=== PATIENT | female | born 1955 | race Caucasian/White ===

== ENCOUNTER → 2016-08-14 | Outpatient (CLI) | payer OTHER ==
--- NOTE | 2016-08-15 08:54 | MRI ---
EXAM DESCRIPTION: Lumbar Spine w/o Contrast CLINICAL HISTORY: 60 years, Female, M54.5 low back pain COMPARISON: None. FINDINGS: Sagittal and axial sequences. Bone marrow signal is somewhat heterogeneous but not worrisome. Conus terminates at L1. Multiple benign-appearing subcentimeter renal cysts, more on the left. L1-2, L2-3 and L3-4 within normal limits. Minimal narrowing and bulging disc L4-5. Mild facet degenerative change. No significant stenosis. At L5-S1, mild narrowing and bulging disc slightly asymmetric to the left. Mild facet degenerative change. No significant stenosis IMPRESSION: Mild degenerative disc changes lower two lumbar interspaces without significant stenosis visualized. Upper lumbar interspaces unremarkable. Incidental note of numerous bilateral renal cysts, more on the left Electronically signed by: Navdeep Hermosillo MD 08/15/2016 8:53 AM CDT
== END | disposition home or self-care (01) ==
LOC: MRI 07:47
PROVIDERS: ATTEND Nurse Practitioner Family
DX: M54.5 Low back pain (principal)

== ENCOUNTER → 2016-10-17 | Outpatient (CLI) | payer OTHER | LOC: GMAJ 13:16 | PROVIDERS: ATTEND Family Medicine | DX: R53.1 Weakness (principal); F32.0 Major depressive disorder, single episode, mild ==

== ENCOUNTER → 2016-10-22 | Outpatient (CLI) | payer OTHER ==
--- NOTE | 2016-10-23 13:18 | MAM ---
EXAM DESCRIPTION: 3D Screening BILATERAL CLINICAL HISTORY: 60 yearsFemaleSCREENING . No complaints. Maternal grandmother with breast cancer. Postmenopausal. Currently using HRT. Previous bilateral cyst aspiration. COMPARISON: None. No prior reports available. TECHNIQUE: Bilateral CC and MLO projection full-field images, 3-D tomosynthesis digital mammographic technique. Also bilateral synthesized CC/ MLO full-field images. CAD not utilized. FINDINGS: The breast parenchymal density pattern is: Heterogeneously dense breast tissue, which may obscure small masses. No skin thickening or nipple retraction bilateral scattered solitary microcalcifications. Focal asymmetry vs. Ill-defined mass density, approximately 1.5 cm in diameter abutting the right pectoral muscle in the posterior third of the breast seen only on the MLO images. 13 cm from the nipple and 6 Centimeters from the skin surface . Small solitary microcalcification. Appears to be medial on the coronal images. Approximately 200 clock position. Possibly an inflamed lymph node. No focal, stellate mass or density, , and no suspicious microcalcifications bilaterally. No focal asymmetry in the left breast. IMPRESSION: BI-RADS CATEGORY: 0 - INCOMPLETE- Need additional imaging evaluation. FOLLOW-UP: Recall for additional imaging: Right breast exaggerated CC view. Right breast digital full field lateral medial 3-D tomosynthesis image. Followed by targeted right breast ultrasound. Written communication explaining the results and follow-up will be mailed to the patient and referring care provider. Electronically signed by: Darrin Terry MD 10/23/2016 1:16 PM CDT Workstation: [id number]
== END ==
LOC: MAMMO 10:35
PROVIDERS: ATTEND Family Medicine
DX: Z12.31 Encounter for screening mammogram for malignant neoplasm of breast (principal)

== ENCOUNTER → 2016-11-19 | Outpatient (CLI) | payer OTHER ==
--- NOTE | 2016-11-19 13:16 | MAM ---
EXAM DESCRIPTION: 3D Diagnostic, Right CLINICAL HISTORY: 61 yearsFemaleABNORMAL MAMMO. No history of trauma to the right breast axilla or right posterior superior breast at the chest wall. COMPARISON: 3-D tomosynthesis screening bilateral study 10/22/2016. Targeted right breast ultrasound on this visit. TECHNIQUE: Digital 3-D tomosynthesis LM and CC and exaggerated CC projections. FINDINGS: The focal asymmetry seen on the prior screening study on the MLO projections abutting the pectoral muscle is not seen on the exaggerated craniocaudal or lateral medial projections of the right breast. ULTRASOUND: Scanning of the posterior third of the right breast abutting the chest wall. Fibrofatty and fibroglandular tissues are seen in a heterogeneous pattern. Multiple cysts, less than 1 cm in diameter, are scattered through the fibroglandular tissues. Hypoechoic mass with well-defined dang measuring 5.0 x 4.5 mm with well-defined borders. Parallel orientation and mixed posterior features. No definite calcifications and not vascular. Could be complicated cyst or fibroadenoma. No other discrete solid mass or calcification. No parenchymal edema. IMPRESSION: BI-RADS CATEGORY: 2 - BENIGN FINDINGS. FOLLOW UP: Return to routine digital bilateral screening, one year interval from November 2016. The results and follow-up were discussed in person with the patient. Communication explaining the results and followup will be mailed to the patient and referring care provider. According to the [employer], yearly mammograms are recommended starting at age 40 and continuing as long as a woman is in good health. Any breast change noted on a breast self-exam should be reported promptly to the patient's healthcare provider. Breast MRI is recommended for women with an approximately 20-25% or greater lifetime risk of breast cancer, including women with a strong family history of breast or ovarian cancer and women who have been treated for Hodgkin's disease. A negative mammographic report should not delay tissue diagnosis in patients with significant clinical history or physical findings. Extremely dense breast tissue limits the sensitivity of digital mammography. Electronically signed by: Darrin Terry MD 11/19/2016 1:15 PM CDT Workstation: [id number]
--- NOTE | 2016-11-19 13:16 | US ---
EXAM DESCRIPTION: Breast, right CLINICAL HISTORY: 61 yearsFemaleABNORMAL MAMMO COMPARISON: Digital 3-D breast tomosynthesis right on this visit and bilateral 3-D breast tomosynthesis screening study 10/23/2016. TECHNIQUE: Transcutaneous scanning of the posterior third of the right breast utilizing two-dimensional and Doppler modes. Scanning performed by the registered nurse cardiac telemetry and Dr. Terry. FINDINGS: Scanning of the posterior third of the right breast abutting the chest wall. Fibrofatty and fibroglandular tissues are seen in a heterogeneous pattern. Multiple cysts, less than 1 cm in diameter, are scattered through the fibroglandular tissues. Hypoechoic mass with well-defined dang measuring 5.0 x 4.5 mm with well-defined borders. Parallel orientation and mixed posterior features. No definite calcifications and not vascular. Could be complicated cyst or fibroadenoma. No other discrete solid mass or calcification. No parenchymal edema. IMPRESSION: BI-RADS CATEGORY: 2 - BENIGN FINDINGS. FOLLOW UP: Return to routine digital bilateral mammographic screening, one year interval from November 2016. Written communication explaining the findings and follow-up, will be mailed to the patient and referring health care provider. The findings and the follow-up plan were reviewed in person with the patient after the examination. Electronically signed by: Darrin Terry MD 11/19/2016 1:15 PM CDT Workstation: [id number]
== END | disposition home or self-care (01) ==
LOC: MAMMO 11:11
PROVIDERS: ATTEND Family Medicine
DX: R92.8 Other abnormal and inconclusive findings on diagnostic imaging of breast (principal)
CPT/HCPCS: 76641; G0279

== ENCOUNTER 2020-05-27 10:09 | Emergency (ER) | payer MEDICARE, OTHER ==
--- NOTE | 2020-05-27 10:19 | ED.PDOC ---
History of Present Illness - General Stated Complaint: Abdominal pain, nausea vomiting and diarrhea Time Seen by Provider: 05/27/20 10:18 - History of Present Illness Initial Comments: Awakens 7 AM today with severe pain in the right lower quadrant which radiates through to the back and down to the right thigh. Patient complains of nausea with vomiting twice. She also complains of diarrhea 3 times which is nonbloody. Patient denies fever but complains of chills. Patient is status post hysterectomy but denies other abdominal surgeries. She thinks she still has her appendix. Timing/Duration: 4-6 hours Severity: severe Improving Factors: rest Worsening Factors: movement Associated Symptoms: denies symptoms Allergies/Adverse Reactions: Allergies NO KNOWN ALLERGY Allergy (Verified 05/27/20 10:32) Home Medications: Ambulatory Orders Tamsulosin [Flomax] 0.4 mg PO DAILY 10 Days #10 cap 05/27/20 Review of Systems - Review of Systems Constitutional: States: chills EENTM: States: no symptoms reported Cardiology: States: no symptoms reported Gastrointestinal/Abdominal: States: see HPI Genitourinary: States: no symptoms reported Musculoskeletal: States: no symptoms reported Skin: States: no symptoms reported Neurological: States: no symptoms reported Endocrine: States: no symptoms reported Hematologic/Lymphatic: States: no symptoms reported Family Medical History - Family History Mother Family History: Unknown Living Status: Unknown Physical Exam - Physical Exam General Appearance: Alert, Obvious distress - In severe discomfort Eye Exam: bilateral normal Ears, Nose, Throat: hearing grossly normal, normal ENT inspection Neck: non-tender, full range of motion Respiratory: chest non-tender, normal breath sounds Cardiovascular/Chest: regular rate, rhythm Gastrointestinal/Abdominal: normal bowel sounds, soft, tenderness - Very tender right lower quadrant with mild rebound Back Exam: normal inspection, no CVA tenderness Extremity: no pedal edema, no calf tenderness Neurologic: pulp drier firer II-XII nml as tested, no motor/sensory deficits, normal mood/affect, oriented x 3 Skin Exam: normal color Lymphatic: no adenopathy Progress - Progress Progress: 05/27/20 10:29 IV normal saline 500 mL infusion. Morphine 4 mg and Zofran 4 mg IV. 05/27/20 11:59 Later morphine 4 mg given. Comfortable patient more comfortable at this time. Ketorolac 15 mg IV ordered. All diagnostic findings and treatment plan explained to patient and her . 05/27/20 12:41 The pain has now fully subsided. Patient appears comfortable. All diagnostic findings and treatment plan were explained. Patient does not want narcotic prescription. Medical decision makin-year-old female presenting with acute pain in the right lower quadrant with radiation to the back and down the thigh. Patient's initial presentation was suggestive of appendicitis as there was right lower quadrant tenderness. The CT scan of the abdomen did not show acute appendicitis and did show an obstructing 2 mm stone at the right UVJ. Patient is symptomatically improved and appears to be suitable for outpatient treatment. - Results/Orders Results/Orders: EXAM: CT Abdomen and Pelvis With Intravenous Contrast CLINICAL HISTORY: Right lower quadrant pain, rule out appendicitis TECHNIQUE: Axial computed tomography images of the abdomen and pelvis with intravenous contrast. Sagittal and coronal reformatted images were created and reviewed. This CT exam was performed using one or more of the following dose reduction techniques: automated exposure control, adjustment of the mA and/or kV according to patient size, and/or use of iterative reconstruction technique. COMPARISON: No relevant prior studies available. FINDINGS: Limitations: None. Lung bases: No abnormality noted. Pleural space: No abnormality noted. Heart: No abnormality noted. Mediastinum: No abnormality noted. ABDOMEN: Liver: No abnormality noted. Gallbladder and bile ducts: No calcified stones or surrounding fluid. Pancreas: Homogeneous enhancement. No mass, inflammation or ductal dilation. Spleen: No abnormality noted. Adrenals: Visualized portions appear normal. Kidneys and ureters: There is mild right hydroureteronephrosis and mild to moderate diffuse right urinary tract inflammation. There is a 2 mm stone just above the right UVJ. Small bilateral renal cysts noted. The right kidney is ptotic. Stomach and bowel: There is moderate stool in the right colon. The intestinal loops are o therwise relatively normal caliber is not collapsed. Scattered colonic diverticula noted. PELVIS: Appendix: No findings to suggest acute appendicitis. Bladder: No filling defects to suggest mass or large stone. No inflammation. Reproductive: Hysterectomy. ABDOMEN and PELVIS: Intraperitoneal space: No free air. No significant fluid collection. Bones/joints: No acute change noted. Soft tissues: No abnormality noted. Vasculature: No abdominal aortic aneurysm. Lymph nodes: No pathologically enlarged lymph nodes. IMPRESSION: 1. 2 mm stone just above the right UVJ with mild to moderate hydronephrosis and right urinary tract inflammation. 2. No CT evidence of acute appendicitis. Electronically signed by: Keri Barajas MD 05/27/2020 11:46 AM [employer] /27/20 10:25 URINALYSIS Stat 05/27/20 11:10 Hold Metformin x 48Hrs [id number] 05/27/20 11:58 Ketorolac Tromethamine Inj [Toradol Inj] 15 mg IV ONCE ONE Laboratory Results - last 24 hr 05/27/20 05/27/20 10:43 10:43 WBC 9.9 RBC 4.62 Hgb 13.8 Hct 39.8 MCV 86.2 MCH 29.8 MCHC 34.6 RDW 13.0 Plt Count 251 MPV 7.7 Absolute Neuts (auto) 7.40 H Absolute Lymphs (auto) 2.00 Absolute Monos (auto) 0.30 Absolute Eos (auto) 0.00 Absolute Basos (auto) 0.00 Neutrophils % 75.5 Lymphocytes % 20.8 Monocytes % 3.2 Eosinophils % 0.1 L Basophils % 0.4 Sodium 140 Potassium 3.7 Chloride 103 Carbon Dioxide 21 Anion Gap 19.7 H BUN 15 Creatinine 1.09 BUN/Creatinine Ratio 13.8 Random Glucose 170 H Serum Osmolality 284.2 Calcium 9.5 Total Bilirubin 0.7 AST 25 ALT 22 Alkaline Phosphatase 71 Serum Total Protein 7.4 Albumin 4.5 Globulin 2.9 Albumin/Globulin Ratio 1.6 Vital Signs - 24 hr 05/27/20 05/27/20 10:29 12:09 Temperature 96.9 F L Pulse Rate [ 85 74 Left Brachial] Respiratory 20 20 Rate Blood Pressure 204/89 170/88 [Left Arm] O2 Sat by Pulse 97 96 Oximetry 05/27/20 11:10 Hold Metformin x 48Hrs [id number] 05/27/20 12:21 URINE CULTURE W/COLONY COUNT Stat Laboratory Results - last 24 hr 05/27/20 05/27/20 05/27/20 10:43 10:43 12:21 WBC 9.9 RBC 4.62 Hgb 13.8 Hct 39.8 MCV 86.2 MCH 29.8 MCHC 34.6 RDW 13.0 Plt Count 251 MPV 7.7 Absolute Neuts (auto) 7.40 H Absolute Lymphs (auto) 2.00 Absolute Monos (auto) 0.30 Absolute Eos (auto) 0.00 Absolute Basos (auto) 0.00 Neutrophils % 75.5 Lymphocytes % 20.8 Monocytes % 3.2 Eosinophils % 0.1 L Basophils % 0.4 Sodium 140 Potassium 3.7 Chloride 103 Carbon Dioxide 21 Anion Gap 19.7 H BUN 15 Creatinine 1.09 BUN/Creatinine Ratio 13.8 Random Glucose 170 H Serum Osmolality 284.2 Calcium 9.5 Total Bilirubin 0.7 AST 25 ALT 22 Alkaline Phosphatase 71 Serum Total Protein 7.4 Albumin 4.5 Globulin 2.9 Albumin/Globulin Ratio 1.6 Urine Color Yellow Urine Appearance Clear Urine pH 7.5 Ur Specific [place] 1.015 Urine Protein Negative Urine Glucose (UA) 100 H Urine Ketones 15 H Urine Blood Trace-intact H Urine Nitrite Negative Urine Bilirubin Negative Urine Urobilinogen 0.2 Ur Leukocyte Esterase Negative Urine RBC 0-1 Urine WBC 0 Ur Epithelial Cells 0-1 Urine Bacteria 0 Departure - Departure Clinical Impression: Abdominal pain, Kidney stone on right side Disposition: Discharge to Home or Self Care Condition: Good Instructions: Kidney Stones (DC) Diet: resume usual diet - Drink lots of fluids to help facilitate passage of stone Referrals: Kristian Armas MD [Primary Care Provider] - 1-2 Weeks Prescriptions: Tamsulosin [Flomax] 0.4 mg PO DAILY 10 Days #10 cap Home Medications: Ambulatory Orders Tamsulosin [Flomax] 0.4 mg PO DAILY 10 Days #10 cap 05/27/20 Additional Instructions: Take 2 or 3 [id number] ibuprofen tablets with food 4 times a day as needed for pain. If you develop fever, worsening pain in your flank, or vomiting then return to the emergency department. Contact your doctor to arrange for referral to a urologist. If your pain remains completely subsided you do not need to take the medicine prescribed to help pass the stone.
[2020-05-27] MEDS ORDERED: SODIUM CHLORIDE 0.9% 500ML 500 ML IVS ONE (10:25)
[2020-05-27] MEDS ORDERED: ONDANSETRON INJ 4 MG/2 ML VIAL IV ONE (10:25)
[2020-05-27] MEDS ORDERED: MORPHINE SULFATE INJ 10 MG/ML VIAL IV ONE ×2 (10:26→10:53)
[2020-05-27 10:32] VITALS: TEMP 96.9
--- NOTE | 2020-05-27 11:47 | CT ---
EXAM: CT Abdomen and Pelvis With Intravenous Contrast CLINICAL HISTORY: Right lower quadrant pain, rule out appendicitis TECHNIQUE: Axial computed tomography images of the abdomen and pelvis with intravenous contrast. Sagittal and coronal reformatted images were created and reviewed. This CT exam was performed using one or more of the following dose reduction techniques: automated exposure control, adjustment of the mA and/or kV according to patient size, and/or use of iterative reconstruction technique. COMPARISON: No relevant prior studies available. FINDINGS: Limitations: None. Lung bases: No abnormality noted. Pleural space: No abnormality noted. Heart: No abnormality noted. Mediastinum: No abnormality noted. ABDOMEN: Liver: No abnormality noted. Gallbladder and bile ducts: No calcified stones or surrounding fluid. Pancreas: Homogeneous enhancement. No mass, inflammation or ductal dilation. Spleen: No abnormality noted. Adrenals: Visualized portions appear normal. Kidneys and ureters: There is mild right hydroureteronephrosis and mild to moderate diffuse right urinary tract inflammation. There is a 2 mm stone just above the right UVJ. Small bilateral renal cysts noted. The right kidney is ptotic. Stomach and bowel: There is moderate stool in the right colon. The intestinal loops are otherwise relatively normal caliber is not collapsed. Scattered colonic diverticula noted. PELVIS: Appendix: No findings to suggest acute appendicitis. Bladder: No filling defects to suggest mass or large stone. No inflammation. Reproductive: Hysterectomy. ABDOMEN and PELVIS: Intraperitoneal space: No free air. No significant fluid collection. Bones/joints: No acute change noted. Soft tissues: No abnormality noted. Vasculature: No abdominal aortic aneurysm. Lymph nodes: No pathologically enlarged lymph nodes. IMPRESSION: 1. 2 mm stone just above the right UVJ with mild to moderate hydronephrosis and right urinary tract inflammation. 2. No CT evidence of acute appendicitis. Electronically signed by: Keri Barajas MD 05/27/2020 11:46 AM [employer] MATE
[2020-05-27] MEDS ORDERED: KETOROLAC TROMETHAMINE INJ 30 MG/ML VIAL IV ONE (11:58)
[2020-05-27 12:15] VITALS: O2SAT 96
[2020-05-27 13:11] VITALS: BP 145/68
== END 2020-05-27 13:11 | disposition home or self-care (01) ==
LOC: ER 10:09
DX: N13.2 Hydronephrosis with renal and ureteral calculous obstruction (principal); R19.7 Diarrhea, unspecified
CPT/HCPCS: 36415; 74177; 80053; 81001; 85025; 87086; J1885; J2270; J2405; J7040